=== PATIENT | male | born 1945 | race Caucasian/White ===

== ENCOUNTER 2016-09-14 08:09 | Day surgery (SDC) | payer OTHER ==
[2016-09-13 16:36] VITALS: BMI 20.0
[2016-09-14] VITALS (10 sets, daily range): BP systolic 98–111; BP diastolic 55–73; PULSE 52–62; RESP 14–23; Ht 165.1 cm; Wt 50.6 kg
[~2016-09-14] VITALS: Ht 165.1 cm; Wt 50.6 kg
[~2016-09-14 08:09] MED LIST: ASPI81TA3 PO; BENA5TAB2 PO; CARV3.1260 PO; IPRA12.93 IH; SIMV40TA3 PO; [UNRECOGNIZED DRUG - OTHER]
[2016-09-14] MEDS ORDERED: BENA5TAB2 PO (09:47)
[2016-09-14] MEDS ORDERED: TEMA15CA PO (09:48)
--- NOTE | 2016-09-14 11:24 | HPN ---
Date/Time of Note Date/Time of Note DATE: 09/14/16 TIME: 11:24 Interval H&P Admission Note Pt. seen H&P reviewed: No system changes LINDA COPPOLA MD Sep 14, 2016 11:24
[2016-09-14] MEDS ORDERED: BACITRACIN 0.9 GM OINT ONE (11:26)
[2016-09-14] MEDS ORDERED: LIDOCAINE 2%/EPI (MDV) 20ML INJ ONE (11:26)
[2016-09-14] MEDS ORDERED: FENTAnyl 50 MCG/ML VIAL ONE (11:40)
[2016-09-14] MEDS ORDERED: PROPOFOL 20 ML ONE (11:40)
[2016-09-14] MEDS ORDERED: CEFAZOLIN 1 GM INJ ONE (11:40)
[2016-09-14] MEDS ORDERED: PHENYLephrine (100 MCG/ML) 5ML SYG ONE (11:47)
[2016-09-14] MEDS ORDERED: ONDANSETRON 4 MG INJ ONE (11:59)
[2016-09-14] MEDS ORDERED: DEXAMETHASONE 4 MG/ML 1 ML INJ ONE (11:59)
[2016-09-14] MEDS ORDERED: METOCLOPRAMIDE 10 MG INJ ONE (11:59)
[2016-09-14] MEDS ORDERED: LIDOCAINE 2%/EPI (MDV) 20ML INJ INJ ONE (12:19)
[2016-09-14] MEDS ORDERED: MEPERIDINE 25 MG INJ IV PRN (12:30)
[2016-09-14] MEDS ORDERED: morphine (1 MG/ML) 10ML SYRINGE IV PRN ×3 (12:30)
[2016-09-14] MEDS ORDERED: EPHEDrine SULFATE 50 MG/5 ML SYG IV PRN (12:30)
[2016-09-14] MEDS ORDERED: FENTAnyl 50 MCG/ML VIAL IV PRN ×3 (12:30)
[2016-09-14] MEDS ORDERED: DIPHENHYDRAMINE 50 MG INJ IV PRN (12:30)
[2016-09-14] MEDS ORDERED: ONDANSETRON 4 MG INJ IV PRN ×2 (12:30→13:00)
[2016-09-14] MEDS ORDERED: LABETALOL HCL 20MG INJ IV PRN (12:30)
--- NOTE | 2016-09-14 12:47 | OPR ---
Date/Time of Note Date/Time of Note DATE: 09/14/16 TIME: 12:42 Operative Report Preoperative Diagnosis left nose basal cell Postoperative Diagnosis same Operation/Procedure Performed re-excision left nose with flap closure Surgeon: LINDA COPPOLA MD Anesthesia: general Estimated Blood Loss: minimal Specimens left cheek lesion Complications: None LINDA COPPOLA MD Sep 14, 2016 12:47
--- NOTE | 2016-09-14 12:59 | OPR ---
Date/Time of Note Date/Time of Note DATE: 09/14/16 TIME: 12:53 Operative Report Free Text/Dictation Plastic Surgery Operative Report Preoperative diagnosis: Left nose basal cell Postoperative diagnosis: Same Procedure: Reexcision of deep margin of left nose basal cell and flap closure Surgeon: Eleonora Jeffrey.: None Anesthesia: General EBL: Minimal IV fluids: Per anesthesia flow sheet Findings: No residual tumor remaining Complications: None Dispo: Home Indications for procedure: 71-year-old male presents today for treatment of a left nasal base basal cell carcinoma. He previously underwent an excision and was left with a positive deep margin. He underwent an extensive workup including an MRI. He was discussed at a tumor board and it was felt that he would best be treated by reexcision. Therefore, we will elevate the skin overlying the tumor bed, and then excise the tissue directly beneath the previous area, and will send this for pathology. This will need a flap closure. The risks, benefits, alternatives of performing this procedure were discussed with the patient including the risks of bleeding, infection, wound healing problems, partial flap loss, total flap loss, lesion recurrence, need for reexcision, need for revision, and the patient states that he understands these risks and would like to proceed with the procedure. All questions were answered, no guarantees were given with regards to the outcome of this procedure. Description of procedure: The patient was brought to the operating room at [facility] where general anesthesia was induced and the patient was prepped and draped in the usual sterile fashion. A total of 5 cc of 1% lidocaine with 1: 200,000 epinephrine were injected into the planned surgical site and into the left maxilla as an infraorbital nerve block. Next, the incision was reopened with a 15 blade, and then skin flaps were elevated medially and laterally with a 15 blade as well. Flaps were elevated along the plane of the scar tissue. Once that border of the scar tissue was reached, dissection proceeded deep, and then the tissue between the scar bed and the deep musculature was then excised sharply. This was sent for pathology. Pathology returned negative. Total size of the specimen was approximately 1 cm. Therefore, hemostasis was achieved with electrocautery and the wound was inspected. In order to minimize tension on the closure, a cheek advancement flap was planned. The flap was undermined sharply with the scissors, and then the border of the flap was cut with a 15 blade. The flap was advanced into position. It came together without undue tension. Therefore hemostasis was achieved with the electrocautery, and then the incision was closed with 5-0 Vicryl suture and 5-0 nylon suture. Flap size was 2 x 1 cm. The patient tolerated procedure well, there were no complications, follow-up information and wound care instructions were given Surgeon: LINDA COPPOLA MD Anesthesia: general Estimated Blood Loss: minimal Complications: None LINDA COPPOLA MD Sep 14, 2016 12:59
[2016-09-14] MEDS ORDERED: HYDROCODONE/APAP (5/325) TAB PO PRN (13:00)
[2016-09-14] MEDS ORDERED: morphine 4 MG/ML VIAL IV PRN (13:00)
== END 2016-09-14 14:00 | disposition home or self-care (01) ==
LOC: SDS 08:09
PROVIDERS: ATTEND Surgery Plastic and Reconstructive Surgery
DX: L98.8 Other specified disorders of the skin and subcutaneous tissue (principal)
CPT/HCPCS: 14040; 88305; 88331; J0690; J1100; J2405; J2765; J3010; J2370